=== PATIENT | female | born 1965 | race Caucasian/White ===

== ENCOUNTER 2016-10-09 08:43 | Inpatient (IN) ==
[2016-10-09] MEDS ORDERED: traMADol 50 MG TABLET PO PRN (09:58)
[2016-10-09] MEDS ORDERED: chlorproMAZINE 25 MG TABLET PO PRN (09:58)
[2016-10-09] MEDS ORDERED: diphenhydrAMINE CAP 25 MG CAPSULE PO PRN (09:58)
[2016-10-09] MEDS ORDERED: ALPRAZolam 0.25 MG TABLET PO PRN (09:58)
[2016-10-09] MEDS ORDERED: ALUMINUM/MAGNES/SIMETH MAX STR 30 ML UDCUP PO PRN (09:58)
[2016-10-09] MEDS ORDERED: TEMAZEPAM 7.5 MG CAPSULE PO PRN (09:58)
[2016-10-09] MEDS ORDERED: chlorproMAZINE INJ 50 MG in SODIUM CHLORIDE 0.9% 100 ML IV PRN (09:58)
[2016-10-09] MEDS ORDERED: MAGNESIUM HYDROXIDE SUSP 30 ML UDCUP PO PRN (09:58)
[2016-10-09] MEDS ORDERED: PROMETHAZINE INJ 25 MG in SODIUM CHLORIDE 0.9% 50 ML IV PRN (09:58)
[2016-10-09] MEDS ORDERED: chlorproMAZINE INJ 25 MG in SODIUM CHLORIDE 0.9% 100 ML IV PRN (09:58)
[2016-10-09] MEDS ORDERED: LOPERAMIDE 2 MG CAPSULE PO PRN ×2 (09:58)
[2016-10-09] MEDS ORDERED: BENZTROPINE 2 MG/2 ML AMP IV PRN (09:58)
[2016-10-09] MEDS ORDERED: MYLANTA/LIDO VISC 2:1 300 ML BOTTLE SWISH/SWAL PRN (09:58)
[2016-10-09] MEDS ORDERED: LACTULOSE 20 GM/30 ML UDCUP PO PRN (09:58)
[2016-10-09] MEDS ORDERED: MYLANTA/LIDO VISC 2:1 300 ML BOTTLE SWISH/SPIT PRN (09:58)
[2016-10-09] MEDS ORDERED: guaiFENesin 200 MG/10 ML UDCUP PO PRN (09:58)
[2016-10-09] MEDS ORDERED: fentaNYL 25 MCG/HR PATCH TRANSDERM SCH (10:30)
[2016-10-09 10:32] LABS: Basophils % 0.4 % (0.0-0.8); Eosinophils % 0.8 % (0.00-10.9); Hematocrit 35.5 VOL% (35.7-47.0); Hemoglobin 11.4 GM/DL (12.0-16.0); Immature Granulocytes % 0.2 %; Immature Granulocytes Absolute 0.01 #; Lymphocytes # 1.2 10*3/uL (1.4-4.0); Lymphocytes % 23.3 % (21.3-54.2); Mean Corpuscular HGB Conc 32.1 GM/DL (32-36); Mean Corpuscular Hemoglobin 30 PG (27-34); Mean Corpuscular Volume 94.4 FL (87-102); Monocytes # 0.4 10*3/uL (0.11-0.8); Monocytes % 7.1 % (1.7-12.7); Neutrophils # 3.5 10*3/uL (1.4-7.4); Neutrophils % 68.2 % (38.7-73.9); Platelet Count 175 T/CUMM (130-400); Red Blood Count 3.76 MC/CUMM (3.8-5.5); White Blood Count 5.1 T/CUMM (4-12)
[2016-10-09] MEDS: SODIUM CHLORIDE 0.45% 1,000 ML IV SCH (10:37)
[2016-10-09] MEDS: HYDROmorphone 2 MG/1 ML VIAL IV PRN ×2 (10:37→14:42)
[2016-10-09 11:06] LABS: Albumin 3.7 G/DL (3.4-5.0); Bilirubin,Total 0.4 MG/DL (0.2-1.0); Calcium 9.1 MG/DL (8.5-10.1); Magnesium 2.2 MG/DL (1.8-2.4); Osmolality,Calculated 287.6 MOS/KG (273-304); Potassium 4.1 MMOL/L (3.5-5.1); Total Protein 6.5 G/DL (6.4-8.3); Uric Acid 2.4 MG/DL (2.6-6.0)
--- NOTE | 2016-10-09 13:16 | Oncology History&Physical ---
Assessment and Plan (1) Lung cancer Status: Acute Assessment and plan: Very concerning for local recurrence given increasing pain symptoms. Plan to repeat CT of the chest today with further recommendations to follow. Hydromorphone IV as needed and fentanyl transdermal for pain. She does have a PET scan scheduled for early October which she understands cannot be pursued while hospitalized. Current Visit: Yes History of Present Illness Chief complaint: Pain History of present illness: Ms. Baugh is a 51 year old female With non-small cell lung cancer from approximately early 2015 who presented with right apical mass. She was treated with chemotherapy radiation and eventual surgical resection. She was felt to be in remission and has been followed expectantly since that time. I last saw her 2 months ago. She reports approximately 3-4 weeks ago she began having increasing pain in the right posterior scapular region with some radiation medially. She has not reported any increase in cough or dyspnea since that time. She has been short acting narcotics and has required increasing doses for pain control. She has been working up until the present time. She denies any significant weight loss. I have reviewed his CT from late July of this year that shows pleural thickening and some concern for vertebral body invasion. She previously had rib erosion with her original presentation. Allergies Allergy/AdvReac Type Severity Reaction Status Date / Time No Known Allergies Allergy Verified 10/09/16 08:27 Medical,Surgical,& Family Hx - Medical History Respiratory: History of: Lung Cancer (AUG 2015) - Surgical History Thoracic Surgeries: Surgical HX of;: Lobectomy (RIGHT UPPER LOBE) - Social History Smoking Status: Smoker, status unknown - Constitutional Constitutional: Present: fatigue. Absent: fever(s) - EENT Eye: Absent: blurry vision Ears: Absent: decreased hearing Nose, mouth and throat: Absent: dysphagia, epistaxis - Cardiovascular Cardiovascular ROS IM: Absent: chest pain - Respiratory Respiratory: Absent: cough - Gastrointestinal Gastrointestinal: Absent: fecal incontinence - Genitourinary Genitourinary ROS female: Absent: hematuria - Musculoskeletal Musculoskeletal ROS: Absent: joint swelling, muscle cramps, muscle weakness Exam - Constitutional General appearance: normal weight, mild distress - Head Head Exam: Present: normal inspection, normocephalic - Eye Eye Exam: Present: EOMI. Absent: conjunctival injection Pupils: Present: PERRL - ENT ENT exam: Present: normal external ear exam - Neck Neck exam: Present: normal inspection. Absent: lymphadenopathy - Respiratory Respiratory exam: Present: CTAB, chest wall tenderness. Absent: accessory muscle use, decreased breath sounds, wheezes - Cardiovascular Cardiovascular exam: Present: RRR - GI/Abdominal GI/Abdominal exam: Absent: ascites, distended, guarding Results - Labs CBC & BMP: 10/09/16 10:23 10/09/16 10:23
--- NOTE | 2016-10-09 14:09 | CT Report ---
EXAM: CT chest with and without contrast DATE: 10/09/2016 COMPARISON: 08/20/2016 REASON: Left chest pain, lung cancer TECHNIQUE: Axial images of the chest were obtained with and without the use of 80 cc of Omnipaque 350 IV contrast. Coronal and sagittal reformatted images were also provided. Total DLP is 372.4 mGy*cm. FINDINGS: The heart is borderline in size with no evidence of aortic dissection or pulmonary emboli. Coronary artery calcifications are noted. Persistent diffuse pleural pathology at the right lung apex. There is associated progressive soft tissue mass effect with progressive bone destruction on the right side T2 and T3 with involvement of the posterior elements. Progressive mass effect in the spinal canal. Progressive bone destruction of the right second rib. The margins of the findings are in distinct which makes it more difficult to measure this abnormality. This difficult to separate this finding from the posterior aspect of the esophagus. No significant change in the size of the nodes in the remainder of the chest. Small hiatal hernia. Persistent evidence of bullous emphysema with progressive atelectasis/infiltration in the left lower lobe which obscures the previously noted 4 mm noncalcified nodule.. On scan 34, the 4 mm noncalcified pulmonary nodule in the left upper lobe now measures 4.5 mm. On scan 44, there is a 3 mm minimally larger noncalcified nodule in the left lower lobe. On scan 67, there is a 3 mm noncalcified pulmonary nodule in the left lower lobe. IMPRESSION: Prior right thoracotomy with chronic scarring. Progressive diffuse soft tissue mass effect the right lung apex/paraspinal location. There is progressive bone destruction of T2 and T3 with bony canal involvement. MRI may be helpful for further evaluation. Progressive atelectasis/infiltration in the left lower lobe with progressive small pulmonary nodules in the left lung which may be related to metastatic disease. These findings were discussed with Dr. Otero's nurse Meg at 2:05 PM on 10/09/2016. Critical test results The CT exam was performed using one or more of the following dose reduction techniques: Automated exposure control and adjustment of the mA and/or kV according to patient size. PROCEDURE INTERPRETED AT [facility] DEPARTMENT OF RADIOLOGY Final Report Signed by: Dr. Jane Becerra
[2016-10-09] MEDS: ONDANSETRON 4 MG/2 ML VIAL IV PRN (14:37)
[2016-10-09] MEDS: ACETAMINOPHEN 325 MG TABLET PO PRN (18:07)
[2016-10-09 23:15] LABS: Apearance,Urine Slightly Hazy (Clear); Bilirubin,Urine Negative (Negative); Blood, Urine Negative (Negative); Glucose,Urine (UA) Negative (Negative); Ketones,Urine 5 mg/dL (Negative); Mucus,Urine Few /LPF (Occasional); Nitrite,Urine Negative (Negative); Protein,Urine Negative; Squamous Epithelial Cell,Urine Few /HPF (0-10); Urine Color Yellow (Yellow); Urine Specific Gravity > 1.060 (1.001-1.035); Urine Urobilinogen < 2.0 EU/DL (0.2-1.0)
[2016-10-10] MEDS: ACETAMINOPHEN 325 MG TABLET PO PRN ×2 (06:27→19:55)
--- NOTE | 2016-10-10 10:26 | Oncology Progress Note ---
Assessment and Plan (1) Lung cancer Status: Acute Assessment and plan: Very concerning for local recurrence given increasing pain symptoms. Plan to repeat CT of the chest today with further recommendations to follow. Hydromorphone IV as needed and fentanyl transdermal for pain. She does have a PET scan scheduled for early October which she understands cannot be pursued while hospitalized. Current Visit: Yes Oncology Subjective PN Interval history: Patient is out of the hospital for radiotherapy consultation. I will seek her there. Exam - Constitutional Vitals: Period Temp Pulse Resp BP Sys/Campbell Pulse Ox Last 24 Hr 96.6 F-99.4 F 58-86 18-20 99-131/53-83 98 Results - Labs CBC & BMP: 10/09/16 10:23 10/09/16 10:23
[2016-10-10] MEDS: ONDANSETRON 4 MG/2 ML VIAL IV PRN (11:43)
--- NOTE | 2016-10-10 11:43 | CT Report ---
Exam: CT treatment planning Date: 10/10/2016 12:00 AM Comparison: 10/09/2016 Indication: Lung cancer, treatment planning Technique:[Sequential axial scans of the chest were obtained with patient on flat board without contrast. Scans were obtained from the level of the mandible to the mid pole of the kidneys.] Total DLP: 623.4 Findings: Stable mass effect with bone destruction the right lung apex involving T2, T3, and right second rib. Prior right thoracotomy with additional stable parenchymal findings. Arterial calcifications with cholelithiasis. Impression: The scans appear adequate for radiation therapy planning purposes in patient with known carcinoma of the lung. This CT exam was performed using one or more the following dose reduction techniques: Automated exposure control, adjustment of the MA and/or KV according to patient size, or use of iterative reconstruction technique. PROCEDURE INTERPRETED AT [facility] DEPARTMENT OF RADIOLOGY Final Report Signed by: Dr. Jane Becerra
[2016-10-10] MEDS: MORPHINE 2 MG/1 ML SYRINGE IV PRN ×3 (11:44→18:40)
--- NOTE | 2016-10-10 14:35 | Radiation Oncology Letter ---
Radiation Oncology - Letter Mrs. Baugh is a 51-year-old white female who have treated in the past for an apical lung carcinoma in September of last year. She had a right upper lobe lung mass which measured 4 x 1.8 x 2 cm which eroded into the right second rib. She received 7020 cGy in 39 fractions. She now has a progressive mass lesion very close to the previous location but it is now invading and destroying C2 and 3 with cord compression at that level. We'll done CTs today and her prior treatment position with the exception of having to put her arms down at the current time because of recent shoulder surgery. We will try to match the isodose curve and come up with his an effective plan is possible. Thank you for asking me to be involved in the care of this patient. Darrick Olivares M.D.
[2016-10-10] MEDS ORDERED: fentaNYL 50 MCG/HR PATCH TRANSDERM SCH (15:00)
[2016-10-10] MEDS: SODIUM CHLORIDE 0.45% 1,000 ML IV SCH (15:15)
[2016-10-11] MEDS: MORPHINE 2 MG/1 ML SYRINGE IV PRN ×3 (00:49→09:07)
--- NOTE | 2016-10-11 11:44 | Oncology Progress Note ---
Assessment and Plan (1) Lung cancer Status: Acute Assessment and plan: Very concerning for local recurrence given increasing pain symptoms. Plan to repeat CT of the chest today with further recommendations to follow. Hydromorphone IV as needed and fentanyl transdermal for pain. She does have a PET scan scheduled for early October which she understands cannot be pursued while hospitalized. Current Visit: Yes Oncology Subjective PN Interval history: Patient appears comfortable this morning. We discussed discharge for tomorrow. Her fentanyl patches at 50 and we will escalate oral breakthrough medications to [place] 10. We will try to increase the interval between IV morphine today. I am anticipating chemo and radiation next week Exam - Constitutional Vitals: Period Temp Pulse Resp BP Sys/Campbell Pulse Ox Last 24 Hr 96.5 F-99 F 63-72 16-20 86-108/49-65 95-100 Results - Labs CBC & BMP: 10/09/16 10:23 10/09/16 10:23
[2016-10-11] MEDS: SODIUM CHLORIDE 0.45% 1,000 ML IV SCH (16:24)
--- NOTE | 2016-10-12 08:53 | Discharge Summary ---
Hospital Course - Hospital Course Hospital Course: Patient admitted with chest pain located in the right upper posterior regions. Patient with recurrent lung cancer and vertebral body involvement. She was given Dilaudid but tolerated this poorly with nausea. She was changed to morphine with better results. We will be using fentanyl 50 g patch and [place] 10 for further control of pain at home. She does appear comfortable today. She saw a radiotherapy on Thursday and should began further radiation treatments next week. She will return tomorrow on October 13 to initiate further chemotherapy at my office Diagnosis - Discharge Diagnosis (1) Lung cancer Status: Acute Discharge Plan - Discharge Medications No Action HYDROcodone/ACETAMIN 7.5-325 [[place] 7.5-325] 1 tablet PO Q4H - Follow Up or Referral - Forms/Instructions Exam - Constitutional Vitals: Period Temp Pulse Resp BP Sys/Campbell Pulse Ox Last 24 Hr 97.7 F-97.8 F 63-69 16-20 97-108/51-79 95-97 DS: Provider Date of admission: 10/09/16 08:59 Primary care physician: Dre Oteor MD Attending physician on admission: Dre Otero MD Consults: 10/09/16 15:19 Consult to Physician [CONS] Routine Comment: Consulting Provider: Ignacio Olivares Person Notified: Meg Date Notified: 10/09/16 Time Notified: 15:20 Discharging clinician: Dre Otero MD
[2016-10-12 08:58] VITALS: BP 119/60
[2016-10-12] MEDS: MORPHINE 2 MG/1 ML SYRINGE IV PRN (09:43)
== END 2016-10-12 10:10 | disposition home or self-care (01) | DRG 181 ==
LOC: N.4E 08:59
PROVIDERS: ADMIT Specialist; ATTEND Specialist